=== PATIENT | female | born 2000 | race American Indian/Alaskan Native ===

== ENCOUNTER 2018-10-24 00:17 | Emergency (ER) | payer SELFPAY ==
[2018-10-24 01:29] LABS: Basophils % (Auto) 0.5 % (0.0-1.8); Eosinophils # (Auto) 0.1 K/mm3 (0.0-0.4); Eosinophils % (Auto) 0.9 % (0.0-4.3); Hematocrit 35.5 % (30.3-42.9); Hemoglobin 11.3 gm/dl (10.1-14.3); Lymphocytes # (Auto) 1.6 K/mm3 (1.2-5.4); Lymphocytes % (Auto) 25.9 % (13.4-35.0); Mean Corpuscular HGB Conc 32 % (30-34); Mean Corpuscular Volume 84 fl (79-97); Monocytes # (Auto) 0.5 K/mm3 (0.0-0.8); Monocytes % (Auto) 8.8 % (0.0-7.3); Platelet Count 240 K/mm3 (140-440); Red Cell Distribution Width 14.6 % (13.2-15.2)
[2018-10-24 01:50] LABS: BUN/Creatinine Ratio 20; Blood Urea Nitrogen 10 mg/dL (7-17); Calcium 9.3 mg/dL (8.4-10.2); Hemolysis Index 3
[2018-10-24 03:22] LABS: HCG Qualitative,Urine Negative (Negative)
--- NOTE | 2018-10-24 03:25 | Emergency Department Report ---
ED Abdominal Pain HPI - General Chief Complaint: Abdominal Pain Stated Complaint: FLANK PAIN Time Seen by Provider: 10/24/18 02:46 Source: patient, family Mode of arrival: Ambulatory Limitations: No Limitations - History of Present Illness Initial Comments: Patient here complaining of right flank pain and blood in her urine that started yesterday. She has no abdominal pain. No medication taken for pain. She is here to be evaluated. MD Complaint: flank pain, other (blood and urine) Onset/Timin -: days(s) Location: R flank Radiation: none Migration to: no migration Severity: moderate Severity scale (0 -10): 5 Quality: aching, sharp Consistency: constant Improves With: nothing Worsens With: nothing Context: other (unknown) Associated Symptoms: nausea, hematuria. denies: vomiting, diarrhea, fever, chills, constipation, dysuria, hematemesis, hematochezia, melena, anorexia, syncope Treatments Prior to Arrival: other (none) - Related Data LMP (females 10-50): this week Previous Rx's Medication Instructions Recorded Last Taken Type Ibuprofen [Motrin] 600 mg PO Q8H PRN #12 tablet 10/24/18 Unknown Rx Ondansetron [Zofran ODT TAB] 8 mg PO Q8HR PRN #12 tab.rapdis 10/24/18 Unknown Rx Sulfamethoxazole/Trimethoprim 1 each PO BID 10 Days #20 tablet 10/24/18 Unknown Rx [Bactrim DS TAB] Allergies Allergy/AdvReac Type Severity Reaction Status Date / Time No Known Allergies Allergy Unverified 10/24/18 00:27 ED Review of Systems ROS: Stated complaint: FLANK PAIN Other details as noted in HPI Constitutional: denies: chills, fever ENT: denies: throat pain Respiratory: denies: cough, shortness of breath, wheezing Cardiovascular: denies: chest pain, palpitations, edema, syncope Gastrointestinal: nausea. denies: abdominal pain, vomiting, diarrhea, constipation, hematemesis, hematochezia Genitourinary: hematuria. denies: urgency, dysuria, frequency, discharge, abnormal menses Musculoskeletal: other (flank pain). denies: back pain, joint swelling, arthralgia, myalgia Skin: denies: rash Neurological: denies: headache, abnormal gait, vertigo ED Past Medical Hx - Past Medical History Previous Medical History?: No - Surgical History Past Surgical History?: No - Family History Family history: hypertension - Social History Smoking Status: Never Smoker Substance Use Type: None - Medications Home Medications: Home Medications Medication Instructions Recorded Confirmed Last Taken Type Ibuprofen [Motrin] 600 mg PO Q8H PRN #12 tablet 10/24/18 Unknown Rx Ondansetron [Zofran ODT TAB] 8 mg PO Q8HR PRN #12 tab.rapdis 10/24/18 Unknown Rx Sulfamethoxazole/Trimethoprim 1 each PO BID 10 Days #20 tablet 10/24/18 Unknown Rx [Bactrim DS TAB] ED Physical Exam - General Limitations: No Limitations General appearance: alert, in no apparent distress - Head Head exam: Present: atraumatic, normocephalic, normal inspection - Eye Eye exam: Present: normal appearance, PERRL, EOMI Pupils: Present: normal accommodation - ENT ENT exam: Present: normal exam, normal orophraynx, mucous membranes moist - Neck Neck exam: Present: normal inspection, full ROM. Absent: tenderness - Respiratory Respiratory exam: Present: normal lung sounds bilaterally. Absent: respiratory distress, chest wall tenderness - Cardiovascular Cardiovascular Exam: Present: regular rate, normal rhythm, normal heart sounds - GI/Abdominal GI/Abdominal exam: Present: soft, normal bowel sounds. Absent: distended, tenderness, guarding, rebound, rigid, organomegaly, mass - Extremities Exam Extremities exam: Present: normal inspection, full ROM, normal capillary refill, other (No cce. + 2 pulses in all extremities, no neurovascular compromise). Absent: tenderness, pedal edema, joint swelling - Back Exam Back exam: Present: normal inspection, full ROM, tenderness, CVA tenderness (R), other (ambulates without any difficulties). Absent: CVA tenderness (L), muscle spasm, paraspinal tenderness, vertebral tenderness, rash noted - Neurological Exam Neurological exam: Present: alert, oriented X3, normal gait - Psychiatric Psychiatric exam: Present: normal affect, normal mood - Skin Skin exam: Present: warm, dry, intact, normal color. Absent: rash ED Course Vital Signs 10/24/18 00:24 Temperature 98.4 F Pulse Rate 78 Blood Pressure 109/68 O2 Sat by Pulse 98 Oximetry - Reevaluation(s) Reevaluation #1: 10/24/18 04:22 Patient is stable. She has a UTI with blood and right CVA tenderness. Vital signs are stable and pains controlled with with hydrocodone 5/325 mg 2 tablets by mouth and she was given Zofran 8 mg by mouth for nausea. No nausea present. Patient awaits CT scan of the abdomen and pelvis without contrast to rule out kidney stone. She was updated on her latest laboratory results and pending CT scan. She voiced understanding. Reevaluation #2: 10/24/18 06:01 Patient is controlled and CT scan is negative for acute findings. This was medicated with patient and she voiced understanding. ED Medical Decision Making - Lab Data Result diagrams: 10/24/18 01:00 10/24/18 01:00 Lab Results 10/24/18 10/24/18 10/24/18 Range/Units 01:00 01:00 03:13 WBC 6.2 (4.5-11.0) K/mm3 RBC 4.20 (3.65-5.03) M/mm3 Hgb 11.3 (10.1-14.3) gm/dl Hct 35.5 (30.3-42.9) % MCV 84 (79-97) fl MCH 27 L (28-32) pg MCHC 32 (30-34) % RDW 14.6 (13.2-15.2) % Plt Count 240 (140-440) K/mm3 Lymph % (Auto) 25.9 (13.4-35.0) % [place] % (Auto) 8.8 H (0.0-7.3) % Eos % (Auto) 0.9 (0.0-4.3) % Baso % (Auto) 0.5 (0.0-1.8) % Lymph # 1.6 (1.2-5.4) K/mm3 [place] # 0.5 (0.0-0.8) K/mm3 Eos # 0.1 (0.0-0.4) K/mm3 Baso # 0.0 (0.0-0.1) K/mm3 Seg Neutrophils % 63.9 (40.0-70.0) % Seg Neutrophils # 4.0 (1.8-7.7) K/mm3 Sodium 142 (137-145) mmol/L Potassium 4.4 (3.6-5.0) mmol/L Chloride 105.3 (98-107) mmol/L Carbon Dioxide 24 (22-30) mmol/L Anion Gap 17 mmol/L BUN 10 (7-17) mg/dL Creatinine 0.5 L (0.7-1.2) mg/dL Estimated GFR > 60 ml/min BUN/Creatinine Ratio 20 % Glucose 86 (65-100) mg/dL Calcium 9.3 (8.4-10.2) mg/dL Urine Color Straw (Yellow) Urine Turbidity Clear (Clear) Urine pH 6.0 (5.0-7.0) Ur Specific [place] 1.006 (1.003-1.030) Urine Protein <15 mg/dl (Negative) mg/dL Urine Glucose (UA) Neg (Negative) mg/dL Urine Ketones Neg (Negative) mg/dL Urine Blood Mod (Negative) Urine Nitrite Neg (Negative) Ur Reducing Substances Not Reportable Urine Bilirubin Neg (Negative) Urine Ictotest Not Reportable Urine Urobilinogen < 2.0 (<2.0) mg/dL Ur Leukocyte Esterase Sm (Negative) Urine WBC (Auto) 22.0 H (0.0-6.0) /HPF Urine RBC (Auto) 22.0 (0.0-6.0) /HPF U Epithel Cells (Auto) < 1.0 (0-13.0) /HPF Urine Bacteria (Auto) 1+ (Negative) /HPF Urine HCG, Qual Negative (Negative) Urine culture sent - Radiology Data Radiology results: report reviewed CT scan of abdomen and pelvis without IV contrast dictated by radiologist and reviewed reviewed by myself. Please see details below. Findings [facility] [address] [place] [address] Cat Scan Report Signed Patient: GINA CHICAS MR#: [id number] : 2000 Acct:[id number] Age/Sex: 18 / F ADM Date: 10/24/18 Loc: ED Attending Dr: Ordering Physician: TAMARA PÉREZ Date of Service: 10/24/18 Procedure(s): CT abdomen pelvis wo con Accession Number(s): [id number] cc: TAMARA PÉREZ FINAL REPORT EXAM: CT ABDOMEN PELVIS WO CON HISTORY: right flank pain with blood in urine TECHNIQUE: CT images obtained through the Abdomen and Pelvis without contrast. Transaxial,coronal and sagittal reformats are provided. PRIORS: None. FINDINGS: Imaged intrathoracic contents are remarkable for mediastinal and pulmonary parenchymal sequela of old granulomatous disease. Kidneys are normal in size, axis and position. No hydroureteronephrosis. A calcification in the right pelvis on axial series 2, image 140 to measuring up to 3 millimeters is outside of the ureter. Left hemipelvis phleboliths also noted. The uterus is anteverted. Trace free fluid in the pelvis is likely physiologic. No stones are seen within the urinary bladder. The liver, gallbladder, pancreas, spleen, and adrenal glands demonstrate a normal noncontrast appearance. Hollow enteric organs are normal in course and caliber. Appendix is normal. No intra-abdominal free air/fluid or lymphadenopathy. Aorta is normal in course and caliber. Superficial soft tissues are remarkable for umbilical jewelry. No acute or aggressive appearing skeletal findings. IMPRESSION: No CT evidence of obstructive urolithiasis or other acute abdominal or pelvic pathology Transcribed By: MB Dictated By: VIKAS FRANKEL MD Electronically Authenticated By: VIKAS FRANKEL MD Signed Date/Time: 10/24/18499 DD/ 2 TD/TT: 10/24/18502 - Medical Decision Making This is a 18-year-old female came to the emergency room with right flank pain and blood in her urine. Physical finding for right CVA tenderness and urinalysis shows the patient has positive leukocytes, positive white blood cell, moderate blood and positive bacteria. Urine culture sent and pending. Patient had CBC and BMP which were stable. Patient had CT scan of the abdomen and pelvis without contrast shows no acute findings. She was medicated with [place] 5/325 2 tablets, Zofran 8 mg ODT and started on Levaquin 500 mg by mouth in ED. I discussed results of CT scan and laboratory results with patient along with diagnosis and treatment plan and she voiced understanding. After CT scan results came back I decided to place patient on Bactrim DS for acute cystitis with hematuria and Zofran for nausea and Motrin for pain. She was given these prescription and discharged home in stable condition. Pain and the nausea is controlled. Ptt stable no acute distress and discharged home with her boyfriend. - Differential Diagnosis kidney stone, pyelonephritis, UTI, pelvic abnormality, Critical care attestation.: If time is entered above; I have spent that time in minutes in the direct care of this critically ill patient, excluding procedure time. ED Disposition Clinical Impression: Acute cystitis with hematuria, Rt flank pain Disposition: TO HOME OR SELFCARE Is pt being admited?: No Does the pt Need Aspirin: No Condition: Stable Instructions: Urinary Tract Infection in Women (ED), Flank Pain (ED) Additional Instructions: Please follow up with [facility] in 2-3 days. Follow-up with primary care physician in 2-3 days and if he do not have a primary care physician follow-up with [facility] You are given a dose of antibiotic emergency room to cover urinary tract infection. Please start taking an antibiotic as prescribed. Increase her fluid intake to 2-3 L of water daily. If his symptoms worsens, please return to the emergency room otherwise follow-up with primary care physician and [facility] Prescriptions: Ibuprofen [Motrin] 600 mg PO Q8H PRN #12 tablet PRN Reason: Pain Ondansetron [Zofran ODT TAB] 8 mg PO Q8HR PRN #12 tab.rapdis PRN Reason: Nausea And Vomiting Sulfamethoxazole/Trimethoprim [Bactrim DS TAB] 1 each PO BID 10 Days #20 tablet Referrals: [facility] [Primary Care Provider] - 2-3 Days [facility] [Outside] - 2-3 Days EREN VILLAFUERTE MD [Staff Physician] - 2-3 Days Forms: Accompanied Note, Work/School Release Form(ED)
[2018-10-24] MEDS ORDERED: ZOFRAN ODT PO ONE (03:26)
[2018-10-24] MEDS ORDERED: NORCO 5/325 PO ONE (03:26)
[2018-10-24 03:28] LABS: Bacteria,Urine 1+ /HPF (Negative); Bilirubin,Urine NEG (Negative); Blood,Urine MOD (Negative); Color,Urine Straw (Yellow); Protein,Urine <15 mg/dL mg/dL (Negative); Urobilinogen,Urine < 2.0 mg/dL (<2.0)
[2018-10-24] MEDS ORDERED: LEVAQUIN PO ONE (04:00)
--- NOTE | 2018-10-24 05:00 | Cat Scan Report ---
FINAL REPORT EXAM: CT ABDOMEN PELVIS WO CON HISTORY: right flank pain with blood in urine TECHNIQUE: CT images obtained through the Abdomen and Pelvis without contrast. Transaxial,coronal an d sagittal reformats are provided. PRIORS: None. FINDINGS: Imaged intrathoracic contents are remarkable for mediastinal and pulmonary parenchymal sequela of old granulomatous disease. Kidneys are normal in size, axis and position. No hydroureteronephrosis. A calcification in the right pelvis on axial series 2, image 140 to measuring up to 3 millimeters is outside of the ureter. Left hemipelvis phleboliths also noted. The uterus is anteverted. Trace free fluid in the pelvis is likely physiologic. No stones are seen within the urinary bladder. The liver, gallbladder, pancreas, spleen, and adrenal glands demonstrate a normal noncontrast appeara nce. Hollow enteric organs are normal in course and caliber. Appendix is normal. No intra-abdominal free air/fluid or lymphadenopathy. Aorta is normal in course and caliber. Superficial soft tissues are remarkable for umbilical jewelry. No acute or aggressive appearing skele zuri findings. IMPRESSION: No CT evidence of obstructive urolithiasis or other acute abdominal or pelvic pathology
[2018-10-24 06:06] VITALS: BP 109/61
== END 2018-10-24 06:06 | disposition home or self-care (01) ==
LOC: ED 00:17
DX: N30.01 Acute cystitis with hematuria (principal)
CPT/HCPCS: 36415; 74176; 80048; 81001; 81025; 85025; Q0162

== ENCOUNTER 2019-06-21 12:09 | Emergency (ER) | payer OTHER ==
--- NOTE | 2019-06-21 12:20 | Emergency Department Report ---
Blank Doc - Documentation Documentation: 18-year-old female that presents with left lateral rib pain with sensation to a lump. This initial assessment/diagnostic orders/clinical plan/treatment(s) is/are subject to change based on patient's health status, clinical progression and re- assessment by fellow clinical providers in the ED. Further treatment and workup at subsequent clinical providers discretion. Patient/guardians urged not to elope from the ED as their condition may be serious if not clinically assessed and managed. Initial orders include: 1- Patient sent to [facility] for further evaluation and treatment 2- xrays
[2019-06-21 13:22] LABS: HCG Qualitative,Urine Negative (Negative)
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
[2019-06-21] MEDS ORDERED: IBUPROFEN PO ONE (14:22)
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
[2019-06-21 15:00] VITALS: BP 112/71
== END 2019-06-21 14:58 | disposition home or self-care (01) ==
LOC: ED 12:09
DX: R07.81 Pleurodynia (principal); Z79.899 Other long term (current) drug therapy; D17.1 Benign lipomatous neoplasm of skin and subcutaneous tissue of trunk; V49.50XA Passenger injured in collision with unspecified motor vehicles in traffic accident, initial encounter; Y93.89 Activity, other specified; Y92.410 Unspecified street and highway as the place of occurrence of the external cause; Y99.8 Other external cause status
CPT/HCPCS: 81025